=== PATIENT | female | born 1995 | race Caucasian/White ===

== ENCOUNTER → 2018-08-22 17:04 | Outpatient (CLI) | payer BC, SELFPAY ==
[2018-08-22 19:07] LABS: HCG,Quantitative 171 mIU/mL
[2018-08-24 12:45] LABS: Progesterone 17.2 ng/mL (.)
== END ==
PROVIDERS: Visit Provider Obstetrics & Gynecology Obstetrics
DX: Z32.01 Encounter for pregnancy test, result positive (principal)
CPT/HCPCS: 36415; 84144; 84702

== ENCOUNTER → 2018-08-24 16:21 | Outpatient (CLI) | payer BC, SELFPAY ==
[2018-08-24 17:50] LABS: HCG,Quantitative 416 mIU/mL
== END ==
PROVIDERS: Visit Provider Obstetrics & Gynecology Obstetrics
DX: Z32.01 Encounter for pregnancy test, result positive (principal)
CPT/HCPCS: 36415; 84702

== ENCOUNTER → 2021-04-08 20:36 | Outpatient (CLI) | payer OTHER, SELFPAY | PROVIDERS: Visit Provider Nurse Practitioner Family | DX: Z20.822 Contact with and (suspected) exposure to COVID-19 (principal); J02.9 Acute pharyngitis, unspecified | CPT/HCPCS: C9803; U0003; U0005 ==

== ENCOUNTER 2021-12-01 19:07 | Emergency (ER) | payer BC, SELFPAY ==
[2021-12-01 19:20] VITALS: BP 96/63; PULSE 71; RESP 18; TEMP 36.8; O2SAT 99; BMI 20.5
--- NOTE | 2021-12-01 19:50 | HMH.EDUTC ---
[facility] [place] Disposition Clinical Impression: Insect bites of multiple sites, infected Disposition: Home, Self-Care Condition on Discharge: Good Additional Instructions: Continue taking medication that was prescribed by your Family Doctor Monitor areas that was marked for worsening of redness, warmth and streaks if seen follow up Return if needed Straight to ER if any life threatening symptoms Referrals: Jazz Roman APRN [Primary Care Provider] - As needed Time of Disposition: 19:56 Medical Decision Making - Kannan Inquiry Pt receiving controlled substance: No Kannan was queried for this patient: No Vital Signs: 12/01/21 19:20 Temperature 98.3 F Temperature Source Oral Pulse Rate [Left Brachial] 71 Respiratory Rate 18 Blood Pressure [Left Arm] 96/63 L Blood Pressure Mean [Left Arm] 74 Blood Pressure Source [Left Arm] Automatic Cuff Blood Pressure Position [Left Arm] Sitting 02 Sat by Pulse Oximetry 99 Oxygen Delivery Method Room Air Medical Decision Narrative: Bites on left forearm and right ankle seen PCP today and was place on antibiotics and given cream Patient educated that it may take a little while for the medication to get in her system to help clear the areas areas marked for easy monitoring and patient educated to continue taking medication and monitor areas for improvement patient states only slight changes but she was worried [facility] [place] HPI - General Stated complaint: poss insect bite, L arm, R leg Time Seen by Provider: 12/01/21 19:40 Mode of Arrival: Ambulatory Source of Information: Patient Limitations: No Limitations Description of Symptoms (Recalled from Triage Doc. by RN): PATIENT C/O INSECT BITES TO BACK OF RIGHT ANKLE AND LEFT FOREARM SINCE WEDNESDAY. REDNESS AND SWELLING NOTED TO AREAS HEENT Symptoms (Recalled from RN notes): No Resp Symptoms (Recalled from RN notes): No Skin Symptoms (Recalled from RN notes): Yes MS Symptoms (Recalled from RN notes): No Functional Status (Recalled from RN notes): WNL - History of Present Illness Provider Complaint: Patient states that she has a bug bite on her right ankle and left forearm States that she seen her PCP today and they give her some antibiotics and some cream and told her if they got worse to follow back up so tonight she thought they was looking more red and getting larger so she came in - Related Data Home Medications Medication Instructions Recorded Confirmed prenat.vits,diogenes,aao-tgkp-jdzaq 1 tab PO DAILY 04/08/21 04/08/21 Allergies Allergy/AdvReac Type Severity Reaction Status Date / Time No Known Allergies Allergy Verified 04/08/21 16:48 - Worker's Comp Is this a Worker's Comp case?: No [facility] History - Hepatitis A Screen Attestation statement:: This patient has been screened for Hepatitis A risk factors. I have reviewed the patient's past medical history: Yes Laterality Cases: Bilateral: Tonsillectomy Other Surgeries: Yes: No Previous Surgery, Other Comment: dental surgery - Social History Smoking Status: Never smoker Alcohol Intake: never Substance Use Type: other Occupational Status: other Housing: house Household Members: family Family Hx:: Diabetes ROS Obtained: Yes All systems reviewed & no additional complaints, Yes Systems reviewed as appropriate & no additional complaints - Constitutional Constitutional: Reports system reviewed and no additional complaints, except as docu, Denies body ache, Denies chills, Denies fever(s) - ENT Ears, Nose, Mouth, and Throat: Reports system reviewed and no additional complaints, except as docu - Cardiovascular Cardiovascular: Reports system reviewed and no additional complaints, except as docu - Respiratory Respiratory: Reports system reviewed and no additional complaints, except as docu - Allergic/Immunologic Comments: insect bites on right ankle and left forearm Physical Exam - General General appearance: alert, in no apparent distress - Respiratory
[2021-12-01 19:58] VITALS: BP 96/63; PULSE 71; RESP 18; TEMP 36.8; O2SAT 99
== END 2021-12-01 20:01 | disposition home or self-care (01) ==
PROVIDERS: Emergency Provider Nurse Practitioner; PCP Nurse Practitioner Family
DX: L08.89 Other specified local infections of the skin and subcutaneous tissue (principal)
CPT/HCPCS: 99212; G0463

== ENCOUNTER → 2022-06-22 14:56 | Outpatient (CLI) | payer BC, SELFPAY ==
--- NOTE | 2022-06-22 15:05 | US_ITS ---
FINAL REPORT TECHNIQUE: Sonographic images of the pelvis were obtained transvaginally. CLINICAL HISTORY: PELVIC PAIN FINDINGS: The uterus is retroverted and retroflexed. It measures 7.3 by 4.1 x 5.9. The endometrial stripe measures 5 mm. The myometrium is homogeneous. The cervix is within normal limits. The right ovary measures 3.3 x 2.8 x 1.1. This is normal for age. The left ovary measures 3.5 x 2.3 x 1.5. This is normal for age. Color imaging to the ovaries is within normal limits. Free fluid is slightly greater than expected for physiologic. IMPRESSION: Normal sonographic appearance to the uterus and ovaries for age. Free fluid, slightly greater than expected for physiologic, could be due to ruptured ovarian cyst. Reviewed, Interpreted and Dictated by Khloe Soriano MD Transcribed by Angelina Veloz Authenticated and . [facility]
== END ==
PROVIDERS: PCP Nurse Practitioner Family; Visit Provider Nurse Practitioner Family
DX: R10.30 Lower abdominal pain, unspecified (principal)
CPT/HCPCS: 76830

== ENCOUNTER 2022-06-29 13:35 | Emergency (ER) | payer BC, SELFPAY ==
[2022-06-29 13:55] VITALS: BP 105/59; PULSE 78; RESP 20; TEMP 36.6; O2SAT 98; BMI 19.5
--- NOTE | 2022-06-29 13:58 | EXP.UTC ---
Discharge Plan Disposition Patient Disposition: Home, Self-Care Condition: Good Prescriptions Prescriptions: New amoxicillin [amoxicillin] 500 mg tablet 500 mg PO TID 10 Days Qty: 30 0RF [id number]-ijhdtlirw-MT [Bromfed DM] 2-30-10 mg/5 mL Syrup 5 ml PO Q6H PRN (Reason: Cough) Qty: 240 0RF prednisone 10 mg tablet 10 mg PO BID 3 Days Qty: 6 0RF No Action meloxicam 7.5 mg tablet 7.5 mg PO DAILY Label Comments: TAKE 1 TABLET BY MOUTH ONCE DAILY FOR 30 DAYS atomoxetine 40 mg capsule 40 mg PO DAILY Label Comments: TAKE 1 CAPSULE BY MOUTH ONCE DAILY IN THE MORNING Referrals Follow up/Referrals: Jazz Roman APRN [Primary Care Provider] - See instructions Activity Restrictions/Add. Instructions Additional Instructions/Restrictions: Drink plenty of fluids. Take tylenol or ibuprofen for pain or fever. Take the medications as directed. Follow up with your regular doctor. GO TO THE ER FOR ANY WORSENING SYMPTOMS Throw your tooth brush away and get a new one. Clinical Impressions Clinical Impression: Strep throat Instructions Patient Instructions: Strep Throat, DI for Strep Throat Discharge ED Provider: Mele Moore [facility] HPI General Stated complaint: sore throat,lymph nodes sore Time Seen by Provider: 06/29/22 13:58 History of Present Illness Provider Complaint: She c/o sore throat, fever, and malaise for the past 4 days. Related Data Home Medications Medication Instructions Recorded Confirmed atomoxetine 40 mg capsule 40 mg PO DAILY ADHD 06/29/22 06/29/22 meloxicam 7.5 mg tablet 7.5 mg PO DAILY . 06/29/22 06/29/22 Previous Rx's Medication Instructions Recorded amoxicillin 500 mg tablet 500 mg PO TID 10 days #30 tabs 06/29/22 mjpurwrwrijlteq-wqczkdxcimqvnds-YU 5 ml PO Q6H PRN Cough #240 mL 06/29/22 2 mg-30 mg-10 mg/5 mL oral syrup (Bromfed DM) prednisone 10 mg tablet 10 mg PO BID 3 days #6 tabs 06/29/22 Allergies Allergy/AdvReac Type Severity Reaction Status Date / Time No Known Allergies Allergy Verified 04/08/21 16:48 [facility] Disclaimer: The information contained in this section may have been updated after the patient was seen, as this information can be updated by other users. Surgical History History of tonsillectomy Social History Smoking Status: Never smoker alcohol intake: never substance use type: other current occupational status: other Travel in the last 8 weeks: None household members: family housing: house ROS Obtained: Yes All systems reviewed & no additional complaints except as documented Constitutional Constitutional: Reports chills and Reports fever(s) Eyes Eyes: Denies eye discharge ENT Ears, Nose, Mouth, and Throat: Reports as per HPI Cardiovascular Cardiovascular: Denies chest pain Respiratory Respiratory: Denies chest congestion and Reports cough Gastrointestinal Gastrointestingal: Reports nausea; Denies abdominal pain, constipation, cramping, diarrhea or vomiting Musculoskeletal Musculoskeletal: Denies arthralgias Integumentary/Breasts Skin/Breast: Denies rash Neurologic Neurologic: Denies paresthesias Physical Exam General General appearance: alert and in no apparent distress Head Head exam: atraumatic, normocephalic and normal inspection Eye Eye exam: Present normal appearance, PERRL and EOMI ENT ENT exam: Present mucous membranes moist and normal external ear exam Expanded ENT Exam TM/Canal exam: Bilateral TM: erythema and bulging Nose exam: Absent sinus tenderness Mouth exam: Present normal external inspection; Absent drooling Teeth exam: Present normal inspection Throat exam: Present tonsillar erythema, tonsillomegaly and tonsillar exudate Neck Neck exam: Present normal inspection, full ROM and trachea midline; Absent tenderness, meningismus or lymphaden
[2022-06-29 14:06] LABS: UTC Strep Screen (Rapid) Positive (Negative)
[2022-06-29 14:28] VITALS: BP 105/59; PULSE 78; RESP 20; TEMP 36.6; O2SAT 98
== END 2022-06-29 14:40 | disposition home or self-care (01) ==
PROVIDERS: Emergency Provider Nurse Practitioner Family; PCP Nurse Practitioner Family
DX: J02.0 Streptococcal pharyngitis (principal)
CPT/HCPCS: 87880; 99212; 99213; G0463

== ENCOUNTER 2022-09-24 20:00 | Emergency (ER) | payer BC, SELFPAY ==
[2022-09-24 20:01] VITALS: BP 121/74; PULSE 76; RESP 18; TEMP 37.1; O2SAT 98; BMI 19.5
--- NOTE | 2022-09-24 20:42 | CT_ITS ---
PROCEDURE INFORMATION: Exam: CT Abdomen And Pelvis With Contrast Exam date and time: 09/24/2022 9:11 PM Age: 27 years old Clinical indication: Abdominal pain; Flank; Left; Additional info: Abd pain TECHNIQUE: Imaging protocol: Computed tomography of the abdomen and pelvis with contrast. Radiation optimization: All CT scans at this facility use at least one of these dose optimization techniques: automated exposure control; mA and/or kV adjustment per patient size (includes targeted exams where dose is matched to clinical indication); or iterative reconstruction. Contrast material: ISOVUE; Contrast volume: 75 ml; Contrast route: IV; REPORTING DATA: Count of CT and Cardiac NM exams in prior 12 months: This patient has received 0 known CTs and 0 known cardiac nuclear medicine studies in the 12 months prior to the current study. COMPARISON: US TRANSVAGINAL 06/22/2022 3:46 PM FINDINGS: Liver: Normal. No mass. Gallbladder and bile ducts: Normal. No calcified stones. No ductal dilation. Pancreas: Normal. No ductal dilation. Spleen: Normal. No splenomegaly. Adrenal glands: Normal. No mass. Kidneys and ureters: Normal. No hydronephrosis. Stomach and bowel: Unremarkable. No obstruction. No mucosal thickening. Appendix: No evidence of appendicitis. Intraperitoneal space: Moderate amount of free fluid noted in the pelvis. No free air. Vasculature: Retroaortic left renal vein incidentally noted. No evidence of aortic aneurysm or dissection. Lymph nodes: Mildly prominent mesenteric lymph nodes noted in the mid abdomen. Urinary bladder: Unremarkable as visualized. Reproductive: Unremarkable as visualized. Bones/joints: Unremarkable. No acute fracture. Soft tissues: Unremarkable. IMPRESSION: Moderate amount of free fluid in the pelvis. Differential diagnosis would include physiologic fluid versus acute process, particularly pelvic inflammatory disease. Otherwise unremarkable exam.
[2022-09-24 20:49] LABS: Microscopic, Urine URINE MICROSCOPIC (MICROSCOPIC)
[2022-09-24 20:49] LABS: Basophils # 0.1 K/mm3 (0-0.2); Eosinophils # 0.1 K/mm3 (0.0-0.4); Eosinophils % 1.9 % (0.1-12.0); Hematocrit 39.5 % (37.0-47.0); Lymphocytes # 2.9 K/mm3 (0.7-4.5); Lymphocytes % 43.9 % (10-50); Mean Corpuscular Hemoglobin 28.8 pg (27.0-31.2); Mean Corpuscular Volume 87.4 fl (81-99); Mean Platelet Volume 8.1 fl (7.4-10.4); Monocytes # 0.3 K/mm3 (0.1-1.0); Monocytes % 4.9 % (1.7-9.3); Neutrophils # 3.2 K/mm3 (1.8-7.8); Neutrophils % 48.4 % (37.0-80.0); Platelet Count 217 K/mm3 (142-424); Red Blood Count 4.52 M/mm3 (4.20-5.40); Red Cell Distribution Width 13.2 % (11.5-17.5); White Blood Count 6.6 K/mm3 (4.8-10.8)
[2022-09-24 20:52] LABS: Chloride 97 mmol/L (98-107); Sodium 138 mmol/L (136-145)
[2022-09-24 20:53] LABS: Potassium 3.3 mmoL/L (3.5-5.1)
[2022-09-24 20:53] LABS: Appearance,Urine CLEAR (Clear); Bilirubin,Urine Negative (Negative); Blood, Urine Negative (Negative); Color,Urine YELLOW (Yellow); Glucose,Urine (UA) Negative (Negative); Ketones,Urine Negative (Negative); Leukocyte Esterase,Urine Negative (Negative); Nitrate,Urine Negative (Negative); Protein,Urine Negative (Negative); Specific Gravity, Urine 1.025 (1.005-1.030); Urobilinogen,Urine 0.2 EU/dl (0.2)
[2022-09-24 20:55] LABS: Alanine Aminotransferase 21 U/L (12-78); Albumin Level 4.7 g/dl (3.5-5.0); Albumin/Globulin Ratio 1.8 (1.1-1.8); Alkaline Phosphatase 80 U/L (38-126); Anion Gap 16.3 mEq/L (5-15); Aspartate Amino Transferase 36 U/L (14-36); Bilirubin,Total 0.4 mg/dl (0.2-1.3); Blood Urea Nitrogen 17 mg/dl (7-17); Carbon Dioxide 28 mmol/L (22.0-30.0); Creatinine Clearance Estimated 97 mL/min (50-200); Estimated Glomerular Filt Rate 102 ml/min (>60); GFR (African American) 123 ML/MIN (>60); Globulin 2.6 g/dL (1.3-3.2); Total Protein,Serum 7.3 g/dl (6.3-8.2)
[2022-09-24 20:56] LABS: Amylase 99 U/L (30-110); Calcium 9.5 mg/dl (8.4-10.2); Glucose 86 mg/dl (74-100); Lipase 170 U/L (23-300)
[2022-09-24 20:57] LABS: Urine Pregnancy, HCG Qual. Negative (Negative)
[2022-09-24 21:13] LABS: Squamous Epithelial Cell,Urine Occasional #/hpf (0-5)
--- NOTE | 2022-09-24 21:14 | HMH.EDABDPAI ---
Discharge Plan Disposition Patient Disposition: Home, Self-Care Chief Complaint: Abdominal Pain Referrals Follow up/Referrals: Jazz Roman APRN [Primary Care Provider] - See instructions Shanelle Eagle MD [Staff Physician] - See instructions Jade Rebollar DO [Staff Physician] - See instructions Clinical Impressions Clinical Impression: Acute left flank pain Instructions Patient Instructions: DI for Acute Abdominal Pain Discharge ED Provider: Donnell (ED)Qasim Abdominal Pain HPI General Chief Complaint: Abdominal Pain Stated Complaint: left side abd pain Time Seen by Provider: 09/24/22 21:14 Mode of Arrival: Ambulatory Source of Information: Patient and Medical Record Limitations: No Limitations Description of Symptoms (Recalled from ER Triage Doc. by RN): pt reports at 5pm she started having left flank pain the pain radiated down to her vaginal area the pain is around 9/10 when up and ambulatory but down to about a5 when sitting History of Present Illness HPI narrative: acute onset of lt flank pain which stated acute and increased with ambulatory MD complaint: abdominal pain Onset (ago): hour(s) Consistency: intermittent Location: LUQ and L flank Severity: moderate Quality: sharp Associated symptoms: denies other symptoms Related Data Allergies Allergy/AdvReac Type Severity Reaction Status Date / Time No Known Allergies Allergy Verified 09/21/22 14:26 [facility] Disclaimer: The information contained in this section may have been updated after the patient was seen, as this information can be updated by other users. Surgical History History of tonsillectomy Social History Smoking Status: Never smoker alcohol intake: never substance use type: other current occupational status: other Travel in the last 8 weeks: None household members: family housing: house ROS Obtained: Yes All systems reviewed & no additional complaints except as documented Physical Exam General General appearance: alert Head Head exam: normocephalic Eye Eye exam: Present PERRL and EOMI ENT ENT exam: Present mucous membranes moist Neck Neck exam: Present trachea midline Respiratory Respiratory exam: Absent respiratory distress Cardiovascular Cardiovascular exam: Present regular rate Abdominal Exam Abdominal exam: Present soft and tenderness; Absent guarding or rebound Abdominal tenderness: Present LUQ and moderate Extremities Exam Extremities exam: Present full ROM Back Exam Back exam: Absent CVA tenderness (L) Neurological Exam Neurological exam: Present alert, oriented X3 and CN II-XII intact; Absent motor sensory deficit Psychiatric Psychiatric exam: Present normal affect Skin Skin exam: Absent rash Medical Decision Making Medical Records Medical records reviewed: Yes I reviewed the patient's medical records. Kannan Inquiry Pt receiving controlled substance: No Vital Signs: 09/24/22 20:01 Temperature 98.7 F Temperature Source Oral Pulse Rate [Left] 76 Respiratory Rate 18 Blood Pressure [Right Arm] 121/74 Blood Pressure Mean [Right Arm] 89 02 Sat by Pulse Oximetry 98 Oxygen Delivery Method Room Air Lab Data Lab results reviewed: Yes I reviewed the patient's lab results. Lab Results 09/24/22 20:19: Urine Color Yellow, Urine Appearance Clear, Urine pH 6.0, Ur Specific [place] 1.025, Urine Protein Negative, Urine Glucose (UA) Negative, Urine Ketones Negative, Urine Blood Negative, Urine Nitrate Negative, Urine Bilirubin Negative, Urine Urobilinogen 0.2, Ur Leukocyte Esterase Negative, Urine RBC None, Urine WBC None, Ur Squamous Epith Cells Occasional, Urine Bacteria None 09/24/22 20:19: Urine HCG, Qual Negative 09/24/22 20:41: Amylase 99, Lipase 170 09/24/22 20:41: WBC 6.6, RBC 4.52, Hgb 13.0, Hct 39.5, MCV 87.4, MCH 28.8, MCHC 33.0, RDW 13.2, Plt Count 217, MPV 8.1, Neut % (Auto) 48.4, Lymph % (
[2022-09-24 23:56] LABS: C-Reactive Protein 4.1 mg/L (0-4)
[2022-09-25 00:13] LABS: Procalcitonin < 0.030 ng/mL (0.0-2.0)
[2022-09-25 00:21] LABS: Erythrocyte Sedimentation Rate 12 mm/hr (0-20)
[2022-09-25 00:38] VITALS: BP 116/68; PULSE 76; RESP 18; TEMP 36.9; O2SAT 98
== END 2022-09-25 00:47 | disposition home or self-care (01) ==
PROVIDERS: Emergency Provider Emergency Medicine; PCP Nurse Practitioner Family
DX: R10.12 Left upper quadrant pain (principal); R10.2 Pelvic and perineal pain
CPT/HCPCS: 74177; 80053; 81001; 81025; 82150; 83690; 84145; 85025; 85651; 86140; 96361; 96374; 99284; 99285; Q9967

== ENCOUNTER → 2022-12-24 14:36 | Outpatient (CLI) | payer BC, SELFPAY ==
[2022-12-24 15:17] LABS: Campylobacter Not Detected (NotDetected); Clostridium Difficile A/B, PCR Not Detected (NotDetected); Plesimonas Shigalloides, PCR Not Detected (NotDetected); Salmonella, PCR Not Detected (NotDetected); Vibrio, PCR Not Detected (NotDetected); Yersinia Entercolitica, PCR Not Detected (NotDetected)
[2022-12-24 15:18] LABS: Adenovirus F 40/41, stool Not Detected (NotDetected); Astrovirus Not Detected (NotDetected); Cryptosporidium Not Detected (NotDetected); Cyclospora Cayetanesis Not Detected (NotDetected); Entamoeba histolytica Not Detected (NotDetected); Enteroaggregative E coli Not Detected (NotDetected); Enterotoxigenic E coli Not Detected (NotDetected); Giardia lamblia Not Detected (NotDetected); Norovirus Not Detected (NotDetected); Rotavirus A Not Detected (NotDetected); Sapovirus Not Detected (NotDetected); Shiga-like toxin E coli Not Detected (NotDetected); Shigella Enterovasive E coli Not Detected (NotDetected); Vibrio Cholerae Not Detected (NotDetected)
[2022-12-25 11:09] LABS: Enteropathogenic E coli Detected (NotDetected)
== END ==
PROVIDERS: PCP Nurse Practitioner Family; Visit Provider Nurse Practitioner Family
DX: K52.9 Noninfective gastroenteritis and colitis, unspecified (principal); A04.0 Enteropathogenic Escherichia coli infection
CPT/HCPCS: 87507

== ENCOUNTER 2023-02-13 18:39 | Emergency (ER) | payer BC, SELFPAY ==
[2023-02-13 18:45] VITALS: BP 97/71; PULSE 74; RESP 20; TEMP 36.7; O2SAT 99; BMI 20.3
[2023-02-13 18:52] VITALS: BP 97/71; PULSE 74; RESP 20; TEMP 36.7; O2SAT 99
--- NOTE | 2023-02-13 18:56 | EXP.UTC ---
Discharge Plan Disposition Patient Disposition: Home, Self-Care Condition: Good Prescriptions Prescriptions: New montelukast [Singulair] 10 mg tablet 10 mg PO HS Qty: 30 2RF Anoro Ellipta 62.5-25 mcg/actuation blister with device 1 inh inhalation DAILY Qty: 30 2RF omeprazole 40 mg capsule,delayed release(DR/EC) 40 mg PO DAILY Qty: 30 2RF prednisone 20 mg tablet 20 mg PO BID Qty: 10 0RF No Action atomoxetine 60 mg capsule 60 mg PO DAILY norethindrone-e.estradiol-iron [Altagracia Fe 05/29 (28)] 1 mg-20 mcg (21)/75 mg (7) tablet 1 tab PO DAILY Patient Comments: TAKE 1 TABLET BY MOUTH ONCE DAILY bupropion HCl 150 mg tablet extended release 24 hr 1 mg PO DAILY Patient Comments: TAKE 1 TABLET BY MOUTH ONCE DAILY ( EVERY 24 HOURS) Referrals Follow up/Referrals: Jazz Garcia APRN [Primary Care Provider] - See instructions Clinical Impressions Clinical Impression: Cough Instructions Patient Instructions: DI for Cough -- Adult Discharge ED Provider: Magda Garcia [facility] General Stated complaint: cough Mode of Arrival: Ambulatory Source of Information: Patient Limitations: No Limitations Time Seen by Provider: 02/13/23 18:57 Description of Symptoms (Recalled from Triage Doc. by RN): PATIENT C/O COUGH AND INTERMITTEN SINUS CONGESTION/DRAINAGE X 2 MONTHS HEENT Symptoms (Recalled from RN notes): Yes Resp Symptoms (Recalled from RN notes): Yes Skin Symptoms (Recalled from RN notes): No MS Symptoms (Recalled from RN notes): No Functional Status (Recalled from RN notes): WNL History of Present Illness Provider Complaint: Cough and congestion X 2 months. Has tried antihistamines, cough meds without relief. Sometimes she feels congested. Sometimes cough is productive. DOesn't think she has heartburn. Cough is driving her crazy and today she coughed so hard she pulled a muscle in her back. Onset (ago): month(s) Location: chest Relieving factors: none Exacerbating factors: none Associated symptoms: denies other symptoms Treatments prior to arrival: none Related Data Home Medications Medication Instructions Recorded Confirmed atomoxetine 60 mg capsule 60 mg PO DAILY 09/25/22 09/25/22 bupropion HCl 150 mg 24 hr tablet, 1 mg PO DAILY . 02/13/23 02/13/23 extended release norethindrone 1 mg-ethinyl 1 tab PO DAILY Control 02/13/23 02/13/23 estradiol 20 mcg (21)-iron 75 mg (7) tablet (Altagracia Fe 05/29 (28)) Previous Rx's Medication Instructions Recorded montelukast 10 mg tablet 10 mg PO HS #30 tabs 02/13/23 (Singulair) omeprazole 40 mg capsule,delayed 40 mg PO DAILY #30 caps 02/13/23 release prednisone 20 mg tablet 20 mg PO BID #10 tabs 02/13/23 umeclidinium 62.5 mcg-vilanterol 1 inh inhalation DAILY #30 ea 02/13/23 25 mcg/actuation powdr for inhalation (Anoro Ellipta) Allergies Allergy/AdvReac Type Severity Reaction Status Date / Time No Known Allergies Allergy Verified 09/25/22 09:41 Worker's Comp Is this a Worker's Comp case?: No [facility] Disclaimer: The information contained in this section may have been updated after the patient was seen, as this information can be updated by other users. Medical History (Updated 02/13/23 @ 19:06 by WILBERT Mckenna) Family history of endometriosis Surgical History (Updated 09/25/22 @ 09:42 by Jess Kruger CMA) History of tonsillectomy [place] teeth removed Social History Smoking Status: Never smoker alcohol intake: never substance use type: other current occupational status: other Travel in the last 8 weeks: None household members: family housing: house ROS Obtained: Yes All systems reviewed & no additional complaints except as documented Respiratory Respiratory: Reports chest congestion and Reports cough Physical Exam General General appearance: alert Head Head exam: normocephal
== END 2023-02-13 19:11 | disposition home or self-care (01) ==
PROVIDERS: Emergency Provider Physician Assistant; PCP Nurse Practitioner Family
DX: R05.9 Cough, unspecified (principal); R10.12 Left upper quadrant pain
CPT/HCPCS: 99212; 99214; G0463

== ENCOUNTER 2023-04-24 10:43 | Emergency (ER) | payer BC, SELFPAY ==
[2023-04-24 11:11] VITALS: BP 0/0; PULSE 0; RESP 0; TEMP -17.7; TEMP 0
== END 2023-04-24 11:12 | disposition left against medical advice (07) ==
LOC: UTC 10:47
PROVIDERS: Emergency Provider Nurse Practitioner Family; PCP Nurse Practitioner Family
DX: Z53.21 Procedure and treatment not carried out due to patient leaving prior to being seen by health care provider (principal)

== ENCOUNTER 2023-04-26 19:18 | Emergency (ER) | payer BC, SELFPAY ==
[2023-04-26 19:25] VITALS: BP 122/78; PULSE 77; RESP 18; TEMP 36.5; O2SAT 100; BMI 19.5
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
[2023-04-26 19:50] VITALS: BP 122/78; PULSE 77; RESP 18; TEMP 36.5; O2SAT 100
== END 2023-04-26 19:40 | disposition home or self-care (01) ==
PROVIDERS: Emergency Provider Nurse Practitioner; PCP Nurse Practitioner Family
DX: K12.0 Recurrent oral aphthae (principal)
CPT/HCPCS: 99212; 99213; G0463

== ENCOUNTER 2023-07-12 12:14 | Emergency (ER) | payer BC, SELFPAY ==
[2023-07-12 12:40] VITALS: BP 100/63; PULSE 80; RESP 18; TEMP 36.8; O2SAT 99; BMI 21.4
--- NOTE | 2023-07-12 12:41 | ED_ITS ---
Discharge Plan Disposition Patient Disposition: Home, Self-Care Condition: Good Prescriptions Prescriptions: New amoxicillin [amoxicillin] 500 mg tablet 500 mg PO TID 10 Days Qty: 30 0RF [id number] [Bromfed DM] 2-30-10 mg/5 mL Syrup 5 ml PO Q6H PRN (Reason: Cough) Qty: 240 0RF Referrals Follow up/Referrals: Jazz Garcia APRN [Primary Care Provider] - See instructions Activity Restrictions/Add. Instructions Additional Instructions/Restrictions: Drink plenty of fluids. Take tylenol or ibuprofen for pain or fever. Take the medications as directed. Follow up with your regular doctor. GO TO THE ER FOR ANY WORSENING SYMPTOMS Clinical Impressions Clinical Impression: Pharyngitis Instructions Patient Instructions: Sore Throat, DI for Pharyngitis/Tonsillopharyngitis -- Adult Discharge ED Provider: Mele Moore [facility] [place] General Stated complaint: sore throat, fever Time Seen by Provider: 07/12/23 12:41 History of Present Illness Provider Complaint: She states that for the past 2 days she has had worsening sore throat, chills, and malaise. Related Data Previous Rx's Medication Instructions Recorded amoxicillin 500 mg tablet 500 mg PO TID 10 days #30 tabs 07/12/23 pknomdnsmwtfhpb-[id number]-[id number] 5 ml PO Q6H PRN Cough #240 mL 07/12/23 2 mg-30 mg-10 mg/5 mL oral syrup (Bromfed DM) Allergies Allergy/AdvReac Type Severity Reaction Status Date / Time No Known Allergies Allergy Verified 07/12/23 12:56 [facility] Disclaimer: The information contained in this section may have been updated after the debbie ent was seen, as this information can be updated by other users. Medical History (Updated 07/12/23 @ 13:34 by Mele Moore APRN) No significant past medical history Surgical History History of tonsillectomy [place] teeth removed Family History Other Endometriosis Social History Smoking Status: Never smoker alcohol intake: never substance use type: other current occupational status: other Travel in the last 8 weeks: None household members: family housing: house ROS Obtained: Yes All systems reviewed & no additional complaints except as documented Constitutional Constitutional: Reports chills and Reports fever(s) Eyes Eyes: Denies eye discharge ENT Ears, Nose, Mouth, and Throat: Reports as per HPI Cardiovascular Cardiovascular: Denies chest pain Respiratory Respiratory: Denies chest congestion and Reports cough Gastrointestinal Gastrointestingal: Reports nausea; Denies abdominal pain, constipation, cramping, diarrhea or vomiting Musculoskeletal Musculoskeletal: Denies arthralgias Integumentary/Breasts Skin/Breast: Denies rash Neurologic Neurologic: Denies paresthesias Physical Exam General General appearance: alert and in no apparent distress Head Head exam: atraumatic, normocephalic and normal inspection Eye Eye exam: Present normal appearance, PERRL and EOMI ENT ENT exam: Present mucous membranes moist and normal external ear exam Expanded ENT Exam TM/Canal exam: Bilateral TM: erythema and bulging Nose exam: Absent sinus tenderness Mouth exam: Present normal external inspection; Absent drooling Teeth exam: Present normal inspection Throat exam: Present tonsillar erythema, tonsillomegaly and tonsillar exudate Neck Neck exam: Present normal inspection, full ROM and trachea midline; Absent tenderness, meningismus or lymphadenopathy Chest Chest inspection: Present normal inspection and symmetric chest wall rise; Absent tenderness Respiratory Respiratory exam: Present normal lung sounds bilaterally; Absent respiratory distress, wheezes, stridor or accessory muscle use Cardiovascular Cardiovascular exam: Present regular rate and normal rhythm; Absent systolic murmur or diastolic murmur Abdominal Exam Abdominal exam: Present soft and normal bowel sounds; Absent distention, tenderness, guarding, rebound or rigidity Extremities Exam Extremities exam: Present normal inspection and normal capillary refill; Absent calf tenderness Back Exam Back exam: Present normal inspection and full ROM; Absent tenderness, CVA tenderness (R) or CVA tenderness (L) Neurological Exam Neurological exam: Present alert, oriented X3 and CN II-XII intact Psychiatric Psychiatric exam: Present normal affect and normal mood Skin Skin exam: Present warm, dry, intact and normal color Medical Decision Making Medical Records Medical records reviewed: No I reviewed the patient's medical records. Kannan Inquiry Pt receiving controlled substance: No Lab Data Lab results reviewed: Yes I reviewed the patient's lab results.
[2023-07-12 13:07] LABS: UTC Strep Screen (Rapid) Negative (Negative)
[2023-07-12 13:45] VITALS: BP 100/63; PULSE 80; RESP 18; TEMP 36.8; O2SAT 99
== END 2023-07-12 13:45 | disposition home or self-care (01) ==
PROVIDERS: Emergency Provider Nurse Practitioner Family; PCP Nurse Practitioner Family
DX: J02.9 Acute pharyngitis, unspecified (principal); R50.9 Fever, unspecified; R53.81 Other malaise; R05.9 Cough, unspecified
CPT/HCPCS: 87880; 99212; 99214; G0463

== ENCOUNTER 2023-09-06 13:21 | Emergency (ER) | payer SELFPAY ==
[2023-09-06 13:25] VITALS: BP 106/62; PULSE 83; RESP 18; TEMP 36.8; O2SAT 100; BMI 20.5
--- NOTE | 2023-09-06 13:29 | EXP.UTC ---
Discharge Plan Disposition Patient Disposition: Home, Self-Care Condition: Good Prescriptions Prescriptions: New sulfamethoxazole-trimethoprim [Bactrim DS] 800-160 mg Tablet 1 tab PO BID Qty: 20 0RF cephalexin 500 mg capsule 500 mg PO QID Qty: 40 0RF mupirocin 2 % ointment 1 applic topical TID 7 Days Qty: 15 0RF Referrals Follow up/Referrals: Jazz Garcia APRN [Primary Care Provider] - See instructions Activity Restrictions/Add. Instructions Additional Instructions/Restrictions: Keep the affected area clean and dry. Follow up with your regular doctor. Take the antibiotics as directed and apply the topical antibiotics as directed. Apply warm wet compresses to the affected area three or four times per day. GO TO THE ER FOR ANY WORSENING SYMPTOMS Clinical Impressions Clinical Impression: Abscess of skin, Cellulitis of skin of back Instructions Patient Instructions: Cellulitis, Boil Discharge ED Provider: Mele Moore [facility] General Stated complaint: spider bite L shoulder Time Seen by Provider: 09/06/23 13:29 History of Present Illness Provider Complaint: She states that for the past 3 days she has had a red swollen painful area on the top of her left shoulder. She thinks that she was bit by a spider but she did not see a spider. She denies fever/chills, but she does admit that she has began to feel bad. Related Data Previous Rx's Medication Instructions Recorded cephalexin 500 mg capsule 500 mg PO QID #40 caps 09/06/23 mupirocin 2 % topical ointment 1 applic topical TID 7 days #15 09/06/23 grams sulfamethoxazole 800 1 tab PO BID #20 tabs 09/06/23 mg-trimethoprim 160 mg tablet (Bactrim DS) Allergies Allergy/AdvReac Type Severity Reaction Status Date / Time No Known Allergies Allergy Verified 09/06/23 13:39 [facility] Disclaimer: The information contained in this section may have been updated after the patient was seen, as this information can be updated by other users. Medical History (Updated 09/06/23 @ 14:06 by Mele Moore APRN) No significant past medical history Surgical History History of tonsillectomy [place] teeth removed Family History Other Endometriosis Social History Smoking Status: Never smoker alcohol intake: never substance use type: other current occupational status: other Travel in the last 8 weeks: None household members: family housing: house ROS Obtained: Yes All systems reviewed & no additional complaints except as documented Constitutional Constitutional: Denies chills and Denies fever(s) Eyes Eyes: Denies eye discharge ENT Ears, Nose, Mouth, and Throat: Denies dizziness, Denies otalgia and Denies sore throat Cardiovascular Cardiovascular: Denies chest pain Respiratory Respiratory: Denies shortness of breath, Denies chest congestion, Denies cough, Denies stridor and Denies wheezing Gastrointestinal Gastrointestingal: Denies nausea or vomiting Musculoskeletal Musculoskeletal: Reports system reviewed and no additional complaints, except as documented and Denies arthralgias Integumentary/Breasts Skin/Breast: Reports as per HPI and Reports redness Neurologic Neurologic: Denies dizziness and Denies paresthesias Allergic/Immunologic Allergic/Immunologic: Denies wheezing Physical Exam General General appearance: alert and in no apparent distress Head Head exam: atraumatic, normocephalic and normal inspection Eye Eye exam: Present normal appearance, PERRL and EOMI ENT ENT exam: Present normal exam, normal oropharynx, mucous membranes moist, TM's normal bilaterally and normal external ear exam Neck Neck exam: Present normal inspection, full ROM and trachea midline; Absent meningismus or lymphadenopathy Chest Chest inspection: Present normal inspection and symmetric chest wall rise; Absent tenderness Respiratory Respiratory exam: Present normal lung sounds bilaterally; Absent respiratory distress Cardiovascular Cardiovascular exam: Present regular rate and normal rhythm; Absent JVD Abdominal Exam Abdominal exam: Present soft and normal bowel sounds; Absent distention, tenderness or guarding Extremities Exam Extremities exam: Present normal inspection, full ROM and normal capillary refill; Absent calf tenderness Back Exam Back exam: Present normal inspection; Absent tenderness Neurological Exam Neurological exam: Present alert and oriented X3 Psychiatric Psychiatric exam: Present normal affect and normal mood Skin Skin exam: Present erythema (on her left upper back there is an area of redness that measures 3 cm diameter. it has mild edema, no induration, no open wound and no drainage. ) Lymphatic Lymphatic Findings: no adenopathy Medical Decision Making Medical Records Medical records reviewed: No I reviewed the patient's medical records. Kannan Inquiry Pt receiving controlled substance: No
[2023-09-06 14:09] VITALS: BP 106/62; PULSE 83; RESP 18; TEMP 36.8; O2SAT 100
== END 2023-09-06 14:09 | disposition home or self-care (01) ==
PROVIDERS: Emergency Provider Nurse Practitioner Family; PCP Nurse Practitioner Family
DX: L02.212 Cutaneous abscess of back [any part, except buttock and flank] (principal); L03.312 Cellulitis of back [any part except buttock and flank]
CPT/HCPCS: 99212; 99214; G0463

== ENCOUNTER 2024-08-26 01:55 | Emergency (ER) | payer SELFPAY ==
[2024-08-26 02:03] VITALS: BP 124/72; PULSE 101; RESP 20; TEMP 36.8; O2SAT 100; BMI 22.1
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
[2024-08-26 02:37] LABS: HCG Qualitative, Serum Negative (Negative)
[2024-08-26] MEDS: ONDANSETRON 4MG ODT 4 MG SL (02:39)
[2024-08-26] MEDS: ACETAMINOPHEN 500MG TAB 1000 MG PO (02:39)
--- NOTE | 2024-08-26 03:38 | HMH.EDGENADL ---
Discharge Plan Disposition Patient Disposition: Home, Self-Care Condition: Good Prescriptions Prescriptions: New ondansetron 4 mg tablet,disintegrating 4 mg PO Q6H PRN (Reason: nausea and vomiting) Qty: 10 0RF No Action sulfamethoxazole-trimethoprim [Bactrim DS] 800-160 mg Tablet 1 tab PO BID Qty: 20 0RF cephalexin 500 mg capsule 500 mg PO QID Qty: 40 0RF mupirocin 2 % ointment 1 applic topical TID 7 Days Qty: 15 0RF Referrals Follow up/Referrals: Jazz Garcia APRN [Primary Care Provider] - See instructions Activity Restrictions/Add. Instructions Additional Instructions/Restrictions: You were evaluated in the ER and are appropriate for discharge at this time. Take Tylenol if needed for headache. You have also been prescribed Zofran if needed for mild nausea. Drink plenty of fluids and get plenty of rest. Make an appointment for reevaluation with your primary care doctor in 2 to 3 days. Follow the walk, then jog, then run gradual progression of activity that we discussed. Return to the ER with new, worsening, or otherwise concerning symptoms as discussed. Clinical Impressions Clinical Impression: Concussion Stand Alone Forms Stand Alone Forms: Work/School Release Instructions Patient Instructions: DI for Concussion, DI for Postconcussion Syndrome Print Language Print Language: Sammarinese Discharge ED Provider: Jean Ford Adult HPI General Chief complaint: Headache Stated complaint: concussion Time Seen by Provider: 08/26/24 02:18 Mode of Arrival: Ambulatory Source of Information: Patient Description of Symptoms (Recalled from ER Triage Doc. by RN): Patient states she hit herself in the head with ice box lid yesterday and was diagnosed with a concussion. States she has a headache and nausea today. History of Present Illness HPI narrative: 28-year-old female presents to the ER with concerns of concussion symptoms. She states yesterday at work she was struck in the top of the head by the lid of a commercial cooler. She states usually the lid magnetizes and stays up but it did not and it bounced back striking her in the top of the head. No loss of consciousness, no blood thinners, no bleeding disorders. Patient reports her last period was approximately 3 weeks ago. She reports in the last 24 hours since the incident she has been having headache, occasional mild blurry vision, generalized fatigue and weakness, nausea but no vomiting. She states she was seen by her PCP after the incident and told she had a concussion but there was no imaging. She is not having any numbness, tingling, focal weakness, neck pain, vomiting, abdominal pain, chest pain, difficulty breathing, no other associated symptoms or injuries. Related Data Previous Rx's ?Medication ?Instructions ?Recorded cephalexin 500 mg capsule 500 mg PO QID #40 caps 09/06/23 mupirocin 2 % topical ointment 1 applic topical TID 7 days #15 09/06/23 grams sulfamethoxazole 800 1 tab PO BID #20 tabs 09/06/23 mg-trimethoprim 160 mg tablet (Bactrim DS) ondansetron 4 mg disintegrating 4 mg PO Q6H PRN nausea and 08/26/24 tablet vomiting #10 tabs Allergies Allergy/AdvReac Type Severity Reaction Status Date / Time No Known Allergies Allergy Verified 09/06/23 13:39 [facility] Disclaimer: The information contained in this section may have been updated after the patient was seen, as this information can be updated by other users. Medical History (Updated 08/26/24 @ 03:34 by Jean Ford MD) No significant past medical history Surgical History History of tonsillectomy [place] teeth removed Family History Other Endometriosis Social History Smoking Status: Never smoker alcohol intake: never substance use type: other current occupational status: other Travel in the last 8 weeks: None household members: family housing: house Have you lived/traveled outside [place] in past 30 days?: No Contact w/someone who lives/traveled outside US past 30 days?: No Exposure to someone with infectious disease in past 14 days?: No Do you have a fever (greater than 100.4 F or 38 C)?: No Have you tested positive for COVID-19: No Exposed to someone with COVID-19 in past 14 days?: No Do you have a sore throat?: No Do you have a cough?: No Do you have any weakness?: No Do you have any diarrhea?: No Are you experiencing any unusual bleeding?: No Do you have any muscle aches/pain?: No Do you have any abdominal pain?: No Are you experiencing loss of taste or smell?: No Other Medical History Have you received the Flu Vaccine for this season: No Have you received the Pneumonia Vaccine: No ROS Obtained: Yes Systems reviewed as appropriate & no additional complaints except as documented Per HPI Physical Exam General General appearance: alert and in no apparent distress Head Head exam: atraumatic and normocephalic Eye Eye exam: Present PERRL and EOMI; Absent nystagmus ENT ENT exam: Present mucous membranes moist Neck Neck exam: Present normal inspection and full ROM; Absent tenderness (No midline tenderness, mild cervical paraspinal muscle tenderness) Chest Chest inspection: Present symmetric chest wall rise Respiratory Respiratory exam: Present normal lung sounds bilaterally; Absent respiratory distress, wheezes or stridor Cardiovascular Cardiovascular exam: Present regular rate and normal rhythm Abdominal Exam Abdominal exam: Present soft; Absent distention or tenderness Extremities Exam Extremities exam: Present full ROM; Absent edema Neurological Exam Neurological exam: Present alert, oriented X3, CN II-XII intact, normal gait and other (Normal finger-nose and [id number]); Absent motor sensory deficit Psychiatric Psychiatric exam: Present normal affect and normal mood Skin Skin exam: Present warm and dry Medical Decision Making Medical Records Medical records reviewed: Yes I reviewed the patient's medical records. Screening: Per USPSTF and CDC recommendations, given the prevalence of disease in our region, it is our hospital?s policy to screen for HIV and viral Hepatitis for all patients aged 18 and over and those with ongoing risk factors. MR Comment: Most recent encounter in our system was August 2023 in [facility] where patient was prescribed Bactrim, Keflex, mupirocin after presenting for concerns of spider bite on the left shoulder. Kannan Inquiry Pt receiving controlled substance: No Vital Signs: 08/26/24 02:03 Temperature 98.3 F Temperature Source Oral Pulse Rate [Right Radial] 101 H Respiratory Rate 20 Blood Pressure [Right Arm] 124/72 Blood Pressure Mean [Right Arm] 89 Blood Pressure Source [Right Arm] Automatic Cuff Blood Pressure Position [Right Arm] Supine 02 Sat by Pulse Oximetry 100 Oxygen Delivery Method Room Air Lab Data Lab Results 08/26/24 02:10: Serum HCG, Qual Negative Orders (Tests/Meds): ED MEDICATIONS Discontinued Medications Generic Name Dose Route Start Last Admin Trade Name Jennifer PRN Reason Stop Dose Admin Acetaminophen 1,000 mg 08/26/24 02:27 08/26/24 02:39 Acetaminophen 500mg Tab PO 08/26/24 02:28 1,000 mg ONCE ONE Administration Ondansetron HCl 4 mg 08/26/24 02:27 08/26/24 02:39 Ondansetron 4mg Odt SL 08/26/24 02:28 4 mg ONCE ONE Administration ORDERS Category Date Time Status CT cervical spine wo con Stat Cat Scan 08/26/24 02:[address] head/brain wo con Stat Cat Scan 08/26/24 02:27 Completed HCG Qualitative, Serum Stat Lab 08/26/24 02:10 Completed Medical Decision Narrative: In summary, this otherwise healthy 28-year-old female presents to the emergency department today with concussion symptoms. On initial evaluation patient is hemodynamically stable, afebrile, GCS 15, no neurologic deficits, benign abdominal exam, cardiopulmonary exam benign, no cervical spine tenderness, patient does have mild cervical paraspinal muscle discomfort with palpation. Differential diagnosis includes but is not limited to concussion, postconcussive syndrome, I considered the possibility of intracranial bleed or skull fracture though I have extremely low suspicion for these since patient did not have loss of consciousness and does not have any neurologic deficits or traumatic findings on exam of the skull. I also considered the possibility of cervical spine injury since patient has paraspinal muscle tenderness but I have extremely low suspicion for this since she has no neurologic deficits, no pain with moving the neck, no midline tenderness. Based on these concerns, I ordered test, CT head, CT cervical spine. Patient received Tylenol, Zofran for treatment of symptoms. Labs reviewed by me demonstrate test negative. CT head personally turbid does not demonstrate skull fracture or acute intracranial abnormality, see radiology read final interpretation. CT cervical spine also personally interpreted by me does not demonstrate acute traumatic injury. See radiology read for final interpretation. On reassessment patient continues to be stable, she is tolerating oral intake, she states she feels better after taking the Tylenol and Zofran. I believe she is appropriate for outpatient management. She is comfortable with this plan. Zofran was prescribed to her for continued symptomatic management outpatient. I spent extensive time counseling and educating her and family at bedside about expected course of symptoms, appropriate concussion management, gradual return to activity, follow-up instructions, and giving strict return precautions for the ER. They indicated understanding to all instructions and the patient was discharged in stable condition Critical Care Critical Care Time Critical Care Time: No
[2024-08-26 03:42] VITALS: BP 113/72; PULSE 72; RESP 18; TEMP 36.6; O2SAT 100
--- NOTE | 2024-08-26 03:43 | PC.NURSE ---
IV discontinued. IV catheter tip intact. Bleeding controlled.
== END 2024-08-26 03:44 | disposition home or self-care (01) ==
PROVIDERS: Emergency Provider Emergency Medicine; PCP Nurse Practitioner Family
DX: S06.0X0A Concussion without loss of consciousness, initial encounter (principal); W20.8XXA Other cause of strike by thrown, projected or falling object, initial encounter
CPT/HCPCS: 70450; 72125; 84703; 99285; Q0162

== ENCOUNTER 2024-12-29 18:51 | Emergency (ER) | payer SELFPAY ==
--- OUTSIDE RECORDS SUMMARY | 2024-11-15 10:15 | XMS_ITS ---
Author Organization [facility] Address [address] [facility] [address] [place] [address] Care Team Providers Care Blanket Washer Name Role Phone Bridgett Gao Unavailable [phone] Jade David Unavailable [phone] Allergies No Known Allergies Results Component Value Reference Range Flag Notes Pap w/reflex HPV Reviewed date:11/17/2024 09:55:21 AM Interpretation:Normal Performing Lab: Notes/Report: [facility] Testing performed at: [WB] [facility], [address], , Intervention Analyst: Chastity Ayon MD Source.............Cervix;Endocervix Dates / Results..... No. of containers..01 ThinPrep Vial DIAGNOSIS: Comment N NEGATIVE FOR I NTRAEPITHELIAL LESION OR MALIGNANCY. Specimen adequacy: Comment N Satisfactory for evaluation. Endocervical and/or squamous metaplastic cells (endocervical component) are present. Clinician provided ICD10: Comment N Z01.419 Performed by: Comment N Cheko Addison, Surveyor Instrument Assistant (ASCP) . . N Note: Comment N The Pap smear is a screening test designed to aid in the detection of premalignant and malignant conditions of the uterine cervix. It is not a diagnostic procedure and should not be used as the sole means of detecting cervical cancer. Both false-positive and false-negative reports do occur. Test Methodology: Comment N This liquid based ThinPrep(R) pap test was screened with the use of an image guided system. . Comment N The HPV DNA reflex criteria were not met with this specimen result therefore, no HPV testing was performed. REASON FOR VISIT Annual Social History Sex Assigned At : Social History Observation Description Sex Assigned At Female Social History Drugs/Alcohol: Social Info Question Answer Notes Drugs Have you used drugs other than those for medical reasons in the past 12 months? No Steroid Use Have you used anabolic (body building) st eroids? No Alcohol Screen Did you have a drink containing alcohol in the past year? No Points 0 Interpretation Negative Vital Signs Blood pressure systolic 114 mm Hg 11/16/19 25 Blood pressure diastolic 62 mm Hg 025 Height 64 in 11/15/2024 Weight 124 lbs 11/15/2024 BMI 21.28 kg/m2 11/15/2024 Encounters Encounter Location Date Provider Diagnosis [facility] [address] [facility] [address] [place] [address] 11/15/2024 Jade David Policy Director exam without abnormal findings Z01.419 and Breast discharge N64.52 Assessments Encounter Date Diagnosis (ICD Code) Assessment Notes Treatment Notes Treatment Clinical Notes Section Notes 11/15/2024 Policy Director exam without abnormal findings (ICD-10 - Z01.419) 11/15/2024 Breast discharge (ICD-10 - N64.52) Spontaneous, clear, non bloody discharge, resolved. No mass effect. No discharge can be elicited today. Precautions to return with any recurrent symptoms for further evaluation. Plan Of Treatment Next Appt Details Follow Up: 1 Year,Ailyn blanco n: Provider Name:Litzy Crespo , 11/15/2025 10:15:00 AM, [address] [facility] [address], [place], [address], History and Physical Notes * HPI (History of Present Illness) Category Sub-Category Detail Notes Category Not es DATABASE MANAGER Gladys Malone, a 29-year-old female, presented for an acute visit with concerns about changes in her menstrual cycle, breast discharge, and lower abdominal bleeding. She described that her menstrual cycles have become progressively shorter, with the onset moving from the 25th to the 20th, and now to the 14th day of the month. This shift is unusual for her, as her cycles had previously been steady, and she is unsure of the cause. In addition, Gladys noticed that her left breast leaked fluid a few days ago, reminiscent of her days, despite not having breastfed for two years. She clarified that the discharge was not bloody, there was no significant pain, and she denied any abnormal breast lumps or persistent discharge. She speculated that it might have been old milk but remains uncertain about the reason for this occurrence. Examination Category Sub-Category Detail Notes Category Not es Genitourinary Examination - Female VAGINA: Normal appearance for age, n o significant discharge, lesions, or masses present CERVIX: Appearance normal, n o lesions present, no significant discharge, no tenderness to cervical motion UTERUS: Size normal, no palp able masses, mobile, nontender to palpation BLADDER: Normal and nontender to palpation ADNEXA: No masses or tendern ess bilaterally EXTERNAL GENITALIA: Normal appearance fo r age, no erythema or skin lesions present URETHRA/URETHRAL MEATUS: Normal in appea williams, nontender without mass effect PERINEUM: Normal in appearance without lesion PELVIC LYMPH NODES: No lymphadenopathy General Examination GENERAL APPEARANCE: Well dev eloped, well nourished, alert in no acute distress NEURO/PSYCH: Oriented to person, place, and time. Mood pleasant, normal affect CARDIOPULMONARY: Respiratory effort i s even and unlabored ABDOMINAL/GASTROINTESTINAL: Abdomen nont stephanie, no masses palpated Level Vial Inspector Level Vial Inspector Status MJONES, BOOKKEEPING MANAGER Breast Examination BREASTS: Breast normal . No evidence of mass, skin changes, nipple retraction or discharge AXILLARY LYMPH NODES: No lymphadenopathy Progress Notes * GREGСветланаa MDOB:1995 (29 yo F)Acc No.[id number]:11/15/2024 Progress Note Patient: Gladys Cade Provider: Lennie David MD :1995 A ge:29 Y S ex:Female Date:11/15/2024 Address:[address] [place] [address] Subjective: * Chief Complaints: * A nnual * HPI: A nnual: 29 year old female presents with c/o Annual Exam. G YN: Gladys Malone, a 29-year-old female, presented for an acute visit with concerns about changes in her menstrual cycle, breast discharge, and lower abdominal bleeding. She described that her menstrual cycles have become progressively shorter, with the onset moving from the 25th to the 20th, and now to the 14th day of the month. This shift is unusual for her, as her cycles had previously been steady, and she is unsure of the cause. In addition, Gladys noticed that her left breast leaked fluid a few days ago, reminiscent of her days, despite not having breastfed for two years. She clarified that the discharge was not bloody, there was no significant pain, and she denied any abnormal breast lumps or persistent discharge. She speculated that it might have been old milk but remains uncertain about the reason for this occurrence. * Medical History: Anxiety Mastitis UTI Medical History Verified * Policy Director History: M enstrual History: L MP: 0 10/21/2024 S exual Activity/Contraception: E suresh been sexually active? Y es C ontraception: V asectomy * OB History: P regnancy History (GPA) Total Pregnancies 2 Full Term 2 Living 2 G P : 2 Para: 2 * Surgical History: Tonsilectomy (See chart) and [place] teeth Surgical History verified. * Family History: F amily History Verified.. anxiety , asthma , diabetes , endometriosis , heart disease , HTN , PCOS , UTI , yeast infections. * Social History: T obacco Use: T obacco Use/Smoking S ARGELIA STATUS: Never smoker. D rugs/Alcohol: D rugs H ave you used drugs other than those for medical reasons in the past 12 months? N o Alcohol Screen D id you have a drink containing alcohol in the past year? N o P oints 0 I nterpretation N egative Steroid Use H ave you used anabolic (body building) steroids? N o S ocial History Verified. * Medications: D iscontinuedJunel FE 05/29(Norethin Osman-Eth Estrad-FE) 1-20 MG-MCG Tablet 1 tablet Orally Once a day Vitamin Zoloft(Sertraline HCl) 25 MG Tablet 1 tablet Orally Once a day Medication List reviewed and reconciled with the patientDiscontinued June FE 05/29(Norethin Osman-Eth Estrad-FE) 1-20 MG-MCG Tablet 1 tablet Orally Once a day Discontinued Vitamin Discontinued Zoloft(Sertraline HCl) 25 MG Tablet 1 tablet Orally Once a day Medication List reviewed and reconciled with the patient * Allergies: N .K.D.A.yesAllergies Verified. Objective: * Vitals: B P:114/62mm Hg, Ht: 64 in, Wt:124lbs, BMI:21.28Index. * Examination: G eneral Examination: GENERAL APPEARANCE: W ell developed, well nourished, alert in no acute distress. NEURO/PSYCH: O riented to person, place, and time. Mood pleasant, normal affect. CARDIOPULMONARY: R espiratory effort is even and unlabored. ABDOMINAL/GASTROINTESTINAL: A bdomen nontender, no masses palpated. B reast Examination: BREASTS: B reast normal. No evidence of mass, skin changes, nipple retraction or discharge. AXILLARY LYMPH NODES: N o lymphadenopathy. G enitourinary Examination - Female: EXTERNAL GENITALIA: N ormal appearance for age, no erythema or skin lesions present. URETHRA/URETHRAL MEATUS: N ormal in appearance, nontender without mass effect. BLADDER: N ormal and nontender to palpation. VAGINA: N ormal appearance for age, no significant discharge, lesions, or masses present. CERVIX: A ppearance normal, no lesions present, no significant discharge, no tenderness to cervical motion. UTERUS: S ize normal, no palpable masses, mobile, nontender to palpation. ADNEXA: N o masses or tenderness bilaterally. PERINEUM: N ormal in appearance without lesion. PELVIC LYMPH NODES: N o lymphadenopathy. C haperone: Level Vial Inspector Status Carter FRANKS LPN. Assessment: * Assessment: 1. G yn exam without abnormal findings - Z01.419 (Primary) 2 . B reast discharge - N64.52 Plan: * Treatment: 2. B reast discharge Clinical Notes: Spontaneous, clear, non bloody discharge, resolved. No mass effect. No discharge can be elicited today. Precautions to return with any recurrent symptoms for further evaluation. ? * Procedure Codes: 9 9459 Pelvic examination [List separately in addition to code for primary procedure] * Preventive Medicine: Counseling: Magno carver Preventative Care: Magno padillad ACOG guidelines for preventative exams and pap smears. Preventative health guidelines discussed breast cancer, colon cancer, and osteoporosis screening and prevention as appropriate. Counseled on safe sex practices including control and prevention of sexually transmitted infections as appropriate. B TX care goal follow-up plan: BMI management provided Y es Discussed importance of healthy BMI?Yes S moking: Type of Tobacco Use Cessation Counseling provided C ounseled if indicated * Follow Up: 1 Year,prn Billing Information: * Visit Code: 02364 Est Pt Annual 18-39 yr old. * Procedure Codes: 42924 Pelvic examination [List separately in addition to code for primary procedure]. * Sign off status: Completed Visit Status: C HK (Check Out) true * Provider: Lennie David MD Date: 0 11/15/2024 Generated for Mik hodge/Eduard/Roseannitting on: 0 12/29/2024 07:06 PM EDT
[2024-12-29 18:59] VITALS: BP 123/75; PULSE 97; RESP 18; TEMP 36.8; O2SAT 100; BMI 21.7
--- OUTSIDE RECORDS SUMMARY | 2024-12-29 19:06 | XMS_ITS | Patient Health Record ---
Author Organization [facility] Address [address] [facility] [address] [place] [address] Care Team Providers Care Revenue Inspector Name Role Phone Bridgett Gao Unavailable [phone] Jade David Unavailable [phone] Allergies No Known Allergies Results Component Value Reference Range Flag Notes Pap w/reflex HPV Reviewed date:11/17/2024 09:55:21 AM Interpretation:Normal Performing Lab: Notes/Report: [facility] Testing performed at: [WB] [address], [address], , School Transportation Supervisor: Chastity Ayon MD Source.............Cervix;Endocervix Dates / Results..... No. of containers..01 ThinPrep Vial DIAGNOSIS: Comment N NEGATIVE FOR I NTRAEPITHELIAL LESION OR MALIGNANCY. Specimen adequacy: Comment N cells (endocervical component) are present. Satisfactory for evaluation. Endocervical and/or squamous metaplastic Clinician provided ICD10: Comment N Z01.419 Performed by: Comment N Cheko Addison, Professor Of Practice (ASCP) . . N Note: Comment N occur. The Pap smear is a screening test designed to aid in the uterine cervix. It is not a diagnostic procedure and cancer. Both false-positive and false-negative reports do detection of premalignant and malignant conditions of the should not be used as the sole means of detecting cervical Test Methodology: Comment N the use of an image guided system. This liquid based ThinPrep(R) pap test was screened with . Comment N The HPV DNA reflex criteria were not met with this specimen result therefore, no HPV testing was performed. Reason For Referral No Information Social History Sex Assigned At : Social [...] 0 Interpretation Negative Vital Signs Blood pressure diastolic 62 mm Hg 11/15/2024 Height 64 in 11/15/2024 Blood pressure systolic 114 mm Hg 11/15/2024 Weight 124 lbs 11/15/2024 BMI 21.28 kg/m2 11/15/2024 Encounters Encounter Location Date Provider Diagnosis [facility] [address] [facility] [address] [place] [address] 11/15/2024 Jade David Optics Technical Officer exam without abnormal findings Z01.419 and Breast discharge N64.52 Assessments Encounter Date Diagnosis (ICD Code) Assessment Notes Treatment Notes Treatment Clinical Notes Section Notes 11/15/2024 Breast discharge (ICD-10 - N64.52) Spontaneous, clear, non bloody discharge, resolved. No mass effect. No discharge can be elicited today. Precautions to return with any recurrent symptoms for further evaluation. 11/15/2024 Optics Technical Officer exam without abnormal findings (ICD-10 - Z01.419) Plan Of Treatment Next Appt Details Provider Name:Litzy Crespo , 11/15/2025 10:15:00 AM, [address] [facility] [address], [place], [address], Medical (General) History Medical History History ICD Code Anxiety Mastitis UTI Surgical History Surgery Date(Month/Year) Tonsilectomy (See chart) and [place] teebrice h
--- OUTSIDE RECORDS SUMMARY | 2024-12-29 19:06 | XMS_ITS | Clinical Summary ---
[facility] Address [address] [place] [address] Care Team Providers Care Tractor Trailer Truck Driver Name Role Phone Froylan Alcaraz MD Primary Care Provider Allergies No known active allergies Medications Vit-Fe Fumarate-FA ( 27-) 27-1 MG tablet tablet Take 1 tablet by mouth Daily. Active ferrous sulfate 325 (65 FE) MG tablet Take 1 tablet by mouth Daily With Breakfast. 30 tablet 06/20/2021 10:36 AM EST 06/21/2021 Active ibuprofen (ADVIL,MOTRIN) 600 MG tablet Take 1 tablet by mouth Every 6 (Six) Hours As Needed for Mild Pain . 30 tablet 06/20/2021 10:36 AM EST 06/20/2021 Active docusate sodium (Colace) 100 MG capsule Take 1 capsule by mouth 2 (Two) Times a Day. 60 capsule 1 06/20/2021 10:36 AM EST 06/20/2021 Active Active Problems Problem Noted Date Diagnosed Date (spontaneous vaginal delivery) 06/18/2021 False labor after 37 weeks of gestation without delivery 05/30/2021 (normal spontaneous vaginal delivery) 04/30 38 weeks gestation of 04/25/2019 04/17/2019 Threatened labor 03/24/2019 Resolved Problems Problem Noted Date Diagnosed Date Resolved Date Term 06/18/2021 06/18/2021 Normal labor 04/16/2019 04/30/2019 Immunizations Immunization Administration Dates Next Due MMR 05/02/2019 Family History Medical History Relation Name Comments Hypertension Maternal Grandmother Hypertension Paternal Grandfather Relation Name Status Comments Maternal Grandmother Paternal Grandfather Social History Tobacco Use Types Packs/Day Years Used Date Smoking Tobacco: Never Smokeless Tobacco: Never Alcohol Use Standard Drinks/Week Comments No 0 (1 standard drink = 0.6 oz pur e alcohol) AUDIT-C Answer Date Recorded Frequency of Alcohol Consumption Never 03/24/2019 Average Number of Drinks Not on file 019 Frequency of Binge Drinking Not on file 03/10 [place] Depression Scale Answer Date Recorded [place] Depression Scale Total 2 06/18/2021 The thought of harming myself has occurred to me . Never 06/18/2021 Abuse Screen Answer Date Recorded Unsafe at Home or Work/School Not on file Feels Threatened by Someone? Not on file 01/2023 Does Anyone Keep You from Co ntacting Others or Doint Things Outside the Home? Not on file 02/15/2023 Physical Sign of Abuse Present Not on file 1 Housing Stability Answer Date Recorded Current Living Arrangements Not on file 01/2023 Potentially Unsafe Housing Conditions Not on eliot e 02/15/2023 Family and Community Support Answer Jeff e Recorded Help with Day-to-Day Activities Not on file 02/15/2023 Lonely or Isolated Not on file 02/15/2023 Employment Answer Date Recorded Do you want help finding or keeping work or a emeli b? Not on file 02/15/2023 Disabilities Answer Date Recorded Concentrating, Remembering, or Making Decisions Difficulty Not on file 02/15/2023 Doing Errands Independently Difficulty Not on fi le 02/15/2023 Education Answer Date Recorded Help with school or training? Not on file Preferred Language Not on file 02/15/2023 Comments No Sex and Gender Information Value Date Recorded Sex Assigned at Not on file Legal Sex Female 11:12 AM EDT Gender Identity Not on file Sexual Orientation Not on file Last Filed Vital Signs Vital Sign Reading Time Taken Comments Blood Pressure 113/60 06/20/2021 8:00 AM EST Pulse 99 06/20/2021 8:00 AM EST Temperature 36.4 C (97.6 F) 06/20/2021 8:00 AM EST Respiratory Rate 16 06/20/2021 8:00 AM EST Oxygen Saturation 100% 06/18/2021 8:43 AM EST Inhaled Oxygen Concentration - - Weight 65.8 kg (145 lb) 06/18/2021 5:32 AM EST Height 160 cm (5' 3 ) 06/18/2021 5:32 AM EST Body Mass Index 25.69 06/18/2021 5:32 AM EST Plan of Treatment Health Maintenance Due Date Last Done Comments Annual Gynecologic Pelvic and Breast Exam 1995 TDAP/TD VACCINES (1 - Tdap) 2016 ANNUAL PHYSICAL 06/13/2021 COVID-19 Vaccine ( season) 2024 01/31/2021, 01/10/2021 INFLUENZA VACCINE 02/07/2025 CHLAMYDIA SCREENING Discontinued 12/04/2020, 09/30/2018 HEPATITIS C SCREENING Completed 12/04/2020 , 09/30/2018 Pneumococcal Vaccine 0-49 Aged Out No longer eligible based on patient's age to complete this topic Procedures Procedure Name Priority Date/Time Associated Diagnosis Comments CHLAMYDIA TRACHOMATIS, NEISSERIA GONORRHOEAE, PCR W/ CONFIRMATION Routine 12/04/2020 9:32 AM EDT examination or test, positive result HEPATITIS C ANTIBODY Routine 12/04/2020 9:31 AM EDT examination or test, positive result from Last 3 Months or Most Recently Relevant to Health Maintenance Results * Chlamydia trachomatis, Neisseria gonorrhoeae, PCR w/ confirmation - Urine, Urine, Clean Catch (12/04/2020 9:32 AM EDT) [facility] Chlamydia trachomatis, DES Negative Negative 12/06/2020 1:08 PM EDT [facility] Neisseria gonorrhoeae, DES Negative Negative 12/06/2020 1:08 PM EDT [facility] Urine Urine specimen collection, clean catch / Unknown Collection / Unknown 12/04/2020 9:32 AM EDT 12/04/2020 9:32 AM EDT Narrative [facility] - 12/06/2020 1:08 PM EDT Performed at: [address] [place] [id number] Natural Resources Manager: Shandra Evans MD, Phone: [phone] Bridgett Gao MD MICROBIOLOGY - GENERAL ORDERA BLES Final Result [facility] [address] [place] [address], * Hepatitis C Antibody (12/04/2020 9:31 AM EDT) Hepatitis C Ab Non-Reacti ve Non-Reacti ve 12/04/2020 6:30 PM EDT [facility] Blood Venipuncture / Unknown 12/04/2020 9:31 AM EDT 12/04/2020 9:32 AM EDT Narrative [facility] - 12/04/2020 6:30 PM EDT Results may be falsely decreased if patient taking Biotin. Bridgett Gao MD LAB BLOOD ORDERABLES Final Re sult Performing Organization Address City/[facility]/ZIP Co de Phone Number [facility]
[address] [place] [address], from Last 3 Months or Most Recently Relevant to Health Maintenance Insurance [facility] PPO Advance Directives * CPR (Attempt to Resuscitate) (Latest Code Status on File) Date Activated Date Inactivated Comments 06/18/2021 1:02 PM 06/20/2021 3:09 PM Question Answer Comments Code Status (Patient has no pulse and is not breathing): CPR (Attempt to Resuscitate) Medical Interventions (Patie nt has pulse or is breathing): Full * CPR (Attempt to Resuscitate) Date Activated Date Inactivated Comments 06/18/2021 5:03 AM 06/18/2021 1:01 PM Question Answer Comments Code Status (Patient has no pulse and is not breathing): CPR (Attempt to Resuscitate) Medical Interventions (Patie nt has pulse or is breathing): Full Support * CPR (Attempt to Resuscitate) Date Activated Date Inactivated Comments 04/30/2019 5:34 PM 05/02/2019 4:10 PM Question Answer Comments Code Status (Patient has no pulse and is not breathing): CPR (Attempt to Resuscitate) Medical Interventions (Patie nt has pulse or is breathing): Full * CPR (Attempt to Resuscitate) Date Activated Date Inactivated Comments 04/30/2019 10:25 AM 04/30/2019 5:34 PM Question Answer Comments Code Status (Patient has no pulse and is not breathing): CPR (Attempt to Resuscitate) Medical Interventions (Patie nt has pulse or is breathing): Full * CPR (Attempt to Resuscitate) Date Activated Date Inactivated Comments 04/16/2019 4:08 AM 04/16/2019 3:27 PM Question Answer Comments Code Status (Patient has no pulse and is not breathing): CPR (Attempt to Resuscitate) Medical Interventions (Patie nt has pulse or is breathing): Full Care Teams Tractor Trailer Truck Driver Relationship Specialty Start Date End Date Froylan Alcaraz MD [address] [place] [address] [address] [place] [address] PCP - General Family Medicine 04/16/19
[2024-12-29 20:43] VITALS: BP 115/63; PULSE 81; RESP 16; TEMP 36.8; O2SAT 100
--- NOTE | 2024-12-30 01:19 | ED_ITS ---
Discharge Plan Disposition Patient Disposition: Home, Self-Care Condition: Good Prescriptions Prescriptions: No Action sulfamethoxazole-trimethoprim [Bactrim DS] 800-160 mg Tablet 1 tab PO BID Qty: 20 0RF cephalexin 500 mg capsule 500 mg PO QID Qty: 40 0RF mupirocin 2 % ointment 1 applic topical TID 7 Days Qty: 15 0RF ondansetron 4 mg tablet,disintegrating 4 mg PO Q6H PRN (Reason: nausea and vomiting) Qty: 10 0RF Referrals Follow up/Referrals: Jazz Garcia APRN [Primary Care Provider, Medical] - See instructions Activity Restrictions/Add. Instructions Additional Instructions/Restrictions: Please follow up with your primary care physician and return to the ER if you have any new or worsening symptoms. Clinical Impressions Clinical Impression: Livedo reticularis Print Language Print Language: Japanese Discharge ED Provider: Jose Childers Adult HPI General Chief complaint: Skin/Abscess/Foreign Body Stated complaint: Redness in bloth legs Time Seen by Provider: 12/29/24 19:07 Mode of Arrival: Ambulatory Source of Information: Patient Description of Symptoms (Recalled from ER Triage Doc. by RN): patient presents to the ED for redness/discoloration of posterior bilateral legs. PAtient states she has been bitten by mosquitos but notehing else, and has been outside alot the last few days. Patient states that the discoloration has appeared purple. History of Present Illness HPI narrative: This is a 29-year-old female patient, who is previously healthy, presenting to the emergency department today for evaluation of a rash that was present on her lower extremities earlier today. She states that she was standing up all day long and was working outside and this evening she looked at her inner thighs and noticed that she had an erythematous reticular pattern that was present. She has never seen a rash like this in the past before. She states that her sister does have Raynaud's phenomenon and she wondered if this was something similar. She states that this lesion was not pruritic in nature. It was not particularly bothersome to her. She has not had no associated symptoms such as dysuria, hematuria, urinary frequency, nosebleeds, hemoptysis, abdominal pain, nausea, vomiting, or diarrhea. She has had no recent viral symptoms. She states that since arriving to the hospital this rash has completely resolved and is no longer present. Related Data Previous Rx's ?Medication ?Instructions ?Recorded cephalexin 500 mg capsule 500 mg PO QID #40 caps 09/05 mupirocin 2 % topical ointment 1 applic topical TID 7 days #15 09/06/23 grams sulfamethoxazole 800 1 tab PO BID #20 tabs mg-trimethoprim 160 mg tablet (Bactrim DS) ondansetron 4 mg disintegrating 4 mg PO Q6H PRN nausea and 08/26/24 tablet vomiting #10 tabs Allergies Allergy/AdvReac Type Severity Reaction Status Date / Time No Known Allergies Allergy Verified 09/06/23 13:39 [facility] Disclaimer: The information contained in this section may have been updated after the patient was seen, as this information can be updated by other users. Medical History (Updated 12/29/24 @ 20:37 by Jose Childers DO) No significant past medical history Surgical History History of tonsillectomy [place] teeth removed Family History Other Endometriosis Social History Smoking Status: Never smoker alcohol intake: never substance use type: other current occupational status: other Travel in the last 8 weeks?: None household members: family housing: house Have you lived/traveled outside [place] in past 30 days?: No Contact w/someone who lives/traveled outside [place] past 30 days?: No Exposure to someone with infectious disease in past 14 days?: No Do you have a fever (greater than 100.4 F or 38 C)?: No Have you tested positive for COVID-19?: No Exposed to someone with COVID-19 in past 14 days?: No Do you have a sore throat?: No Do you have a cough?: No Do you have any weakness?: No Do you have any diarrhea?: No Are you experiencing any unusual bleeding?: No Do you have any muscle aches/pain?: No Do you have any abdominal pain?: No Are you experiencing loss of taste or smell?: No Other Medical History Have you received the Flu Vaccine for this season: No Have you received the Pneumonia Vaccine: No ROS Obtained: Yes Systems reviewed as appropriate & no additional complaints except as documented Physical Exam General General appearance: other (See MDM) Respiratory Respiratory exam: Present other (See MDM) Cardiovascular Cardiovascular exam: Present other (See MDM) Neurological Exam Neurological exam: Present other (See MDM) Medical Decision Making Medical Records Medical records reviewed: Yes I reviewed the patient's medical records. Screening: Per USPSTF and CDC recommendations, given the prevalence of disease in our region, it is our hospital?s policy to screen for HIV and viral Hepatitis for all patients aged 18 and over and those with ongoing risk factors. Kannan Inquiry Pt receiving controlled substance: No Kannan was queried for this patient: No Vital Signs: 12/29/24 18:59 12/29/24 20:43 Temperature 98.2 F 98.2 F Temperature Source Temporal Artery Scan Oral Pulse Rate 81 Pulse Rate [Radial] 97 H Respiratory Rate 18 16 Blood Pressure 115/63 Blood Pressure [Right Arm] 123/75 Blood Pressure Mean [Right Arm] 91 Blood Pressure Source Automatic Cuff Blood Pressure Source [Right Arm] Automatic Cuff Blood Pressure Position Sitting Blood Pressure Position [Right Arm] Sitting 02 Sat by Pulse Oximetry 100 Oxygen Delivery Method Room Air Room Air Medical Decision Narrative: In summary, this is a 29-year-old female patient who is presenting to the [facility] department today for evaluation of a rash on her lower extremities. She states that this rash was present after standing up all day long and has now resolved. She has had no lower extremity erythema or edema. This rash was not particularly bothersome to her. I have showed the patient a picture of the livedo reticularis that she states that this is exactly how the rash appeared. She has had no viral symptoms. She has no history of autoimmune diseases. On initial evaluation of the patient they were resting comfortably in no acute distress and nontoxic in appearance. They are hemodynamically stable, saturating well room air, and are neurologically intact. On physical examination there is no rash present anywhere on her body. There is no evidence of current livedo reticularis. Differential diagnosis includes livedo reticularis, recent viral syndrome, vasomotor phenomenon, among others. Patient did not necessitate any labs or imaging for this workup. My suspicion is that this is likely a vasomotor phenomenon that was uncomplicated and is now resolved. I have asked her to return to the emergency department if she has recurrent symptoms that are causing her significant discomfort. I have also asked her to discuss this with her primary care physician. At this time all questions have been answered and all parties are agreeable with the decision to discharge home Critical Care Critical Care Time Critical Care Time: No
== END 2024-12-29 20:44 | disposition home or self-care (01) ==
PROVIDERS: Emergency Provider Student in an Organized Health Care Education/Training Program; PCP Nurse Practitioner Family
DX: L95.0 Livedoid vasculitis (principal)
CPT/HCPCS: 99283